=== PATIENT | female | born 1945 | race Caucasian/White ===

== ENCOUNTER 2021-03-17 14:08 | Emergency (ER) | payer MEDICARE, BC ==
[2021-03-17 14:28] VITALS: BP 148/85; PULSE 68
[2021-03-17] MEDS ORDERED: Bacitracin Oint 1 GM U/D Packet TOP ONE (14:30)
[2021-03-17] MEDS ORDERED: Diphtheria,Pertussis(Acell),Tetanus Vaccine 0.5 ML SDV IM ONE (14:32)
--- NOTE | 2021-03-17 14:41 | EDM.PDOC ---
ED HPI GENERAL MEDICAL PROBLEM - General Chief Complaint: Bite:Animal, Insect Stated Complaint: LEFT ARM LACERATIONS Time Seen by Provider: 03/17/21 14:15 Source of Information: Reports: Patient History Limitations: Reports: No Limitations - History of Present Illness INITIAL COMMENTS - FREE TEXT/NARRATIVE: 75 year old female with PMH afib presents to ED after sustaining dog bites to bilateral forearms. This was the patient's dog and it is UTD on vaccines. She will need a tetanus. left arm has 2 very superficial lacerations 4cm, 2 @ 3cm, and 1 deeper laceration 3cm long. Right arm has a superficial laceration 3cm. Onset: Today Onset Time: 13:15 - Related Data Allergies Allergy/AdvReac Type Severity Reaction Status Date / Time iodine Allergy Cannot Verified 03/17/21 14:29 Remember Home Meds: Home Meds Sertraline HCl 75 mg PO DAILY 09/06/13 [History] busPIRone HCl [Buspirone HCl] 10 mg PO DAILY 09/06/13 [History] Doxycycline [Vibra-Tabs] 100 mg PO Q12HR #14 tab 03/17/21 [Rx] Rivaroxaban [Xarelto] 20 mg PO DAILY 03/17/21 [History] Past Medical History HEENT History: Reports: Cataract, Glaucoma, Impaired Vision Cardiovascular History: Reports: Afib, High Cholesterol Neurological History: Reports: CVA Psychiatric History: Reports: Anxiety, Depression Oncologic (Cancer) History: Reports: Breast Dermatologic History: Reports: Psoriasis Social & Family History - Living Situation & Occupation Living situation: Reports: Occupation: Employed ED ROS GENERAL - Review of Systems Review Of Systems: Comprehensive ROS is negative, except as noted in HPI. ED EXAM, ANIMAL BITE - Physical Exam Exam: See Below Exam Limited By: No Limitations General Appearance: Alert, No Apparent Distress Ears: Hearing Grossly Normal Nose: Normal Inspection Throat/Mouth: Normal Voice Head: Atraumatic Neck: Non-Tender, Full Range of Motion Respiratory/Chest: No Respiratory Distress GI/Abdominal: Non-Tender Back Exam: Normal Inspection, Full Range of Motion Extremities: Normal Inspection, Non-Tender, Normal Capillary Refill Neurological: Alert, Oriented, Normal Gait, No Motor/Sensory Deficits Psychiatric: Normal Affect, Normal Mood Skin Exam: Normal Color, Warm/Dry Lymphatic: No Adenopathy ED ANIMAL BITE PROCEDURES - Laceration/Wound Repair Bilateral Lower Arm Lac/Wound Length In cm: 1 (See HPI) Appearance: Superficial Distal NVT: Neuro & Vascular Intact, No Tendon Injury Course - Vital Signs Last Recorded V/S: Last Vital Signs Temp 98 F 03/17/21 14:20 Pulse 68 03/17/21 14:20 Resp 16 03/17/21 14:20 BP 148/85 H 03/17/21 14:20 Pulse Ox 96 03/17/21 14:20 - Orders/Labs/Meds Orders: Active Orders 24 hr Category Date Time Status Vaccines to be Administered [RC] PER UNIT ROUTINE Care 03/17/21 14:32 Active Meds: Medications Discontinued Medications Generic Name Dose Route Start Last Admin Trade Name Freq PRN Reason Stop Dose Admin Diphtheria/Tetanus/Acell Pertussis 0.5 ml 03/17/21 14:32 Diphtheria,Pertussis(Acell),Tetanus Vaccine 0.5 Ml Sdv IM 03/17/21 14:33 .ONCE ONE Departure - Departure Time of Disposition: 14:38 Disposition: Home, Self-Care 01 Clinical Impression: Laceration Dog bite Qualifiers: Encounter type: initial encounter Qualified Code(s): W54.0XXA - Bitten by dog, initial encounter - Discharge Information *PRESCRIPTION DRUG MONITORING PROGRAM REVIEWED*: Not Applicable *COPY OF PRESCRIPTION DRUG MONITORING REPORT IN PATIENT ZAYDA: Not Applicable Prescriptions: Doxycycline [Vibra-Tabs] 100 mg PO Q12HR #14 tab Instructions: Animal Bite, Adult, [id number], Laceration Care, Adult Referrals: PCP,None [Primary Care Provider] - Additional Instructions: Return to Ed for any increased or new concerning symptoms or signs of infection. Take the antibiotics as directed. Follow up with PMD as needed. Sepsis Event Note (ED) - Evaluation Sepsis Screening Result: No Definite Risk - Focused Exam Vital Signs: Vital Signs Temp Pulse Resp BP Pulse Ox 03/17/21 14:20 98 F 68 16 148/85 H 96 - My Orders Last 24 Hours: My Active Orders 03/17/21 14:32 Vaccines to be Administered [RC] PER UNIT ROUTINE - Assessment/Plan Last 24 Hours: My Active Orders 03/17/21 14:32 Vaccines to be Administered [RC] PER UNIT ROUTINE
== END 2021-03-17 14:51 | disposition home or self-care (01) ==
LOC: LB.ED 14:08
DX: S51.852A Open bite of left forearm, initial encounter (principal); S51.851A Open bite of right forearm, initial encounter; I48.91 Unspecified atrial fibrillation; Z23 Encounter for immunization; Z91.041 Radiographic dye allergy status; Z79.01 Long term (current) use of anticoagulants; W54.0XXA Bitten by dog, initial encounter
CPT/HCPCS: 90471; 90715; 99283

== ENCOUNTER 2021-04-07 06:53 | Emergency (ER) | payer MEDICARE, BC ==
[2021-04-07 07:14] VITALS: PULSE 67
[2021-04-07 07:38] VITALS: BP 164/91
--- NOTE | 2021-04-07 14:49 | ER ---
HISTORY OF PRESENT ILLNESS: A 75-year-old lady who comes in with complaints of bleeding from a wound on the left upper arm. She had a stage 0 melanoma removed yesterday in [place]. She had a gauze dressing on it, but it did seem like the bleeding was controlled last evening, but during the night, it was seeping through and she states there was quite a bit of blood on the bed. She came into the emergency room. Nursing staff evaluated it and stated that it was seeping through the incision. A pressure dressing was already applied by nursing staff including Elena over the top of the initial dressing. We monitored the patient for about 20 minutes and there is no sign of any additional bleeding. The patient is able to move her arm and shoulder freely. She does not feel weak. She takes Xarelto for atrial fibrillation and has been on it for a long time. DIAGNOSIS: Post procedure bleeding, on anticoagulation medication. TREATMENT PLAN: I advised the patient to leave this pressure dressing on for 24 to 36 hours as long as it stays clean and dry and then change down to a smaller dressing, but be prepared to continue with the pressure dressing if needed, and within another day or two the bleeding issues should be well controlled. If it continues to cause bleeding problems for her, I suggest that she either come into the clinic or come back to the ER and I would add some Surgicel to the wound. The patient and her are agreeable with the treatment plan and have no further questions. ALISON/BRONWYN /[id number]
== END 2021-04-07 07:25 | disposition home or self-care (01) ==
LOC: LB.ED 06:53
DX: M96.830 Postprocedural hemorrhage of a musculoskeletal structure following a musculoskeletal system procedure (principal); Z79.01 Long term (current) use of anticoagulants
CPT/HCPCS: 99283

== ENCOUNTER 2021-04-07 15:48 | Emergency (ER) | payer MEDICARE, BC ==
[2021-04-07 17:08] VITALS: BP 151/81; PULSE 69
--- NOTE | 2021-04-07 20:57 | ER ---
HISTORY OF PRESENT ILLNESS: A 75-year-old lady here for a recheck. I saw her early this morning. She had a melanoma lesion removed from the left upper arm. She is on Xarelto and came in with bleeding issues. The dressing was reinforced with Shay and Coban. I did not actually see the incision. This morning, nursing staff already had a re-wrapped. She was sent home and came back now several hours later after the dressing has been basically soaked with blood. The patient states that she feels okay. She is not lightheaded or weak. She is having only a dull ache for pain that she is using Tylenol for from the recent surgical procedure. We removed the dressing today and she has a transverse laceration across the lower deltoid muscle area. There is just a small amount of seeping blood at this time coming through the incision. DIAGNOSIS: Postprocedure wound check with ongoing bleeding issues, on anticoagulation. TREATMENT PLAN: We cleansed the area today. After which, I put on 2 Surgicel packs and we covered this with gauze, Shay, and Coban. The patient is to keep this dressing on for up to 2 days as long as it is not soaking through and I do want her to follow up in the clinic Monday morning or sometime Monday for a dressing change. I also want her to stop her Xarelto for 3 days. She takes it in the evening. She has not taken it yet today. ALISON/MODL /[id number]
== END 2021-04-07 16:45 | disposition home or self-care (01) ==
LOC: LB.ED 15:48
DX: M96.830 Postprocedural hemorrhage of a musculoskeletal structure following a musculoskeletal system procedure (principal); Z79.01 Long term (current) use of anticoagulants
CPT/HCPCS: 99283

== ENCOUNTER 2023-08-12 22:25 | Emergency (ER) | payer MEDICARE, BC ==
[2023-08-12 22:57] VITALS: PULSE 76
[2023-08-12] MEDS ORDERED: Lidocaine 1% with EPINEPHrine 1:100,000 20 ML MDV INJECT ONE (23:33)
[2023-08-12 23:38] VITALS: BP 173/94
== END 2023-08-12 23:13 | disposition home or self-care (01) ==
LOC: LB.ED 22:25
DX: S61.211A Laceration without foreign body of left index finger without damage to nail, initial encounter (principal); E78.00 Pure hypercholesterolemia, unspecified; I48.91 Unspecified atrial fibrillation; Z91.041 Radiographic dye allergy status; Z79.899 Other long term (current) drug therapy; Z79.01 Long term (current) use of anticoagulants; W26.8XXA Contact with other sharp object(s), not elsewhere classified, initial encounter
CPT/HCPCS: 12001; 99282

== ENCOUNTER 2025-03-14 15:44 | Inpatient (IN) | payer MEDICARE, BC ==
[2025-03-14 17:08] LABS: ANION GAP 13.8 mmol/L (5.0-15.0); BUN/CREATININE RATIO 17.5 (6-25); CALCIUM 9.4 mg/dL (8.5-10.1); CARBON DIOXIDE,CO2 27.1 mmol/L (21.0-32.0); CREATININE 0.97 mg/dL (0.55-1.02); EST CRCL DRUG DOSING (CG) 45.47 mL/min; POTASSIUM,K 3.9 mmol/L (3.5-5.1)
[2025-03-14 17:09] LABS: HEMATOCRIT 27.2 % (37.0-47.0); HEMOGLOBIN 8.2 g/dL (11.5-16.5); MEAN CORPUSCULAR HGB CONC 30.1 g/dL (31.0-35.0); MEAN PLATELET VOLUME 10.1 fL (6.0-10.0); RED BLOOD CELL COUNT 3.72 M/uL (3.80-5.80); RED CELL DISTRIBUTION WIDTH 20.2 % (11.0-16.0); WHITE BLOOD CELL COUNT,WBC 6.3 K/uL (4.0-11.0)
[2025-03-14 17:21] LABS: TROPONIN I HIGH SENSITIVITY 20.3 pg/ml (<=60.4)
[2025-03-14] MEDS ORDERED: Albuterol/Ipratropium 3.0-0.5 MG/3 ML Neb Soln NEB SCH (17:45)
[2025-03-14] MEDS: Albuterol/Ipratropium 3.0-0.5 MG/3 ML Neb Soln NEB ONE (17:48)
[2025-03-14] MEDS: Furosemide 40 MG/4 ML VIAL IVPUSH ONE (17:56)
[2025-03-14] MEDS: Sodium Chloride 0.9% 10 ML Syringe FLUSH PRN (17:58)
[2025-03-14] MEDS ORDERED: Pantoprazole 40 MG Vial IVPUSH SCH (19:15)
[2025-03-14] MEDS: Pantoprazole 40 MG Vial IVPUSH SCH (22:18)
[2025-03-14] MEDS: Rivaroxaban 10 MG Tab PO SCH (22:19)
[2025-03-15 09:05] LABS: HEMOGLOBIN 9.4 g/dL (11.5-16.5); MEAN CORPUSCULAR HEMOGLOBIN 22.4 pg (27.0-32.0); MEAN CORPUSCULAR HGB CONC 30.3 g/dL (31.0-35.0); MEAN PLATELET VOLUME 9.2 fL (6.0-10.0); RED BLOOD CELL COUNT 4.19 M/uL (3.80-5.80); RED CELL DISTRIBUTION WIDTH 20.6 % (11.0-16.0); WHITE BLOOD CELL COUNT,WBC 6.1 K/uL (4.0-11.0)
[2025-03-15 09:26] LABS: ANION GAP 13.7 mmol/L (5.0-15.0); CALCIUM 9.3 mg/dL (8.5-10.1); CARBON DIOXIDE,CO2 28.1 mmol/L (21.0-32.0); CREATININE 0.93 mg/dL (0.55-1.02); EST CRCL DRUG DOSING (CG) 47.42 mL/min; POTASSIUM,K 3.8 mmol/L (3.5-5.1)
[2025-03-15] MEDS: busPIRone 10 MG Tab PO SCH (09:27)
[2025-03-15] MEDS: Sertraline 100 MG Tab PO SCH (09:27)
[2025-03-15] MEDS: Latanoprost 0.005% Ophth Soln 2.5 ML Bottle EYEBOTH SCH (09:27)
[2025-03-15] MEDS: buPROPion 300 MG Tab.ER PO SCH (09:27)
[2025-03-15] MEDS: Ferrous Sulfate 325 MG Tab PO SCH (11:55)
[2025-03-15] MEDS: Furosemide 20 MG/2 ML VIAL IVPUSH ONE (11:58)
[2025-03-15] MEDS: Multivitamin Tab PO SCH (14:19)
[2025-03-15 18:37] VITALS: BP 159/72; PULSE 75
[2025-03-15] MEDS ORDERED: Simvastatin 40 MG Tab PO SCH (20:00)
[2025-03-18 17:29] LABS: IRON BINDING CAPACITY TOTAL 396 ug/dL (240-450); IRON,SERUM OR PLASMA 11 ug/dL (28-170); TRANSFERRIN SATURATION 3 %sat (20-50)
[2025-03-18 18:09] LABS: FOLATE,SERUM >22.3 ng/mL (>=5.9)
== END 2025-03-15 19:15 | disposition home or self-care (01) | DRG 125 ==
LOC: LB.ED 15:44 → OBSVTOIN 19:00 → LB.MS 19:00
PROVIDERS: ADMIT Surgery; ATTEND Surgery
PROC: 30233N1 Transfusion of Nonautologous Red Blood Cells into Peripheral Vein, Percutaneous Approach (ICD-10-PCS; principal; 2025-03-14)
DX: R06.02 Shortness of breath (principal); H40.9 Unspecified glaucoma; H54.7 Unspecified visual loss; I48.91 Unspecified atrial fibrillation; R06.09 Other forms of dyspnea; R06.00 Dyspnea, unspecified; M19.90 Unspecified osteoarthritis, unspecified site; D64.9 Anemia, unspecified; R79.89 Other specified abnormal findings of blood chemistry; E78.00 Pure hypercholesterolemia, unspecified; F41.9 Anxiety disorder, unspecified; F32.A Depression, unspecified; Z79.01 Long term (current) use of anticoagulants; Z85.3 Personal history of malignant neoplasm of breast; Z96.649 Presence of unspecified artificial hip joint; Z98.890 Other specified postprocedural states; Z98.49 Cataract extraction status, unspecified eye; Z88.8 Allergy status to other drugs, medicaments and biological substances; Z86.73 Personal history of transient ischemic attack (TIA), and cerebral infarction without residual deficits; Z91.041 Radiographic dye allergy status; Z79.899 Other long term (current) drug therapy; Z90.710 Acquired absence of both cervix and uterus; Z87.891 Personal history of nicotine dependence
CPT/HCPCS: 36415; 36430; 71045; 80048; 82607; 82746; 83540; 83550; 83735; 83880; 84484; 85027; 85379; 86850; 86900; 86901; 86920; 86922; 93005; 93010; 94640; 96374; 99222; 99238; 99285-25; A9270-GY; J1938; J2470; P9016

== ENCOUNTER 2025-05-31 10:28 | Emergency (ER) | payer MEDICARE, BC ==
[2025-05-31 11:31] LABS: BASOPHILS ABSOLUTE AUTO 0.04 K/uL (0.02-0.10); BASOPHILS PERCENT AUTO 0.5 % (0.0-0.5); EOSINOPHILS ABSOLUTE AUTO 0.34 K/uL (0.04-0.40); EOSINOPHILS PERCENT AUTO 4.0 % (1.0-5.0); LYMPHOCYTES ABSOLUTE AUTO 1.69 K/uL (1.50-4.00); LYMPHOCYTES PERCENT AUTO 20.0 % (20.0-40.0); MEAN PLATELET VOLUME 10.4 fL (6.0-10.0); MONOCYTES ABSOLUTE AUTO 1.09 K/uL (0.20-0.80); MONOCYTES PERCENT AUTO 12.9 % (3.0-10.0); NEUTROPHILS ABSOLUTE AUTO 5.27 K/uL (2.00-7.50); NEUTROPHILS PERCENT AUTO 62.6 % (45.0-70.0); PLATELET COUNT,PLT 228 K/uL (150-500); RED BLOOD CELL COUNT 4.58 M/uL (3.80-5.80); RED CELL DISTRIBUTION WIDTH 21.3 % (11.0-16.0); WHITE BLOOD CELL COUNT,WBC 8.4 K/uL (4.0-11.0)
[2025-05-31 12:13] LABS: A/G RATIO 0.8 (0.8-2.0); ALANINE AMINOTRANSFERASE,ALT 15.0 U/L (12-78); ASPARTATE AMNIOTRANSFERASE,AST 15.0 U/L (15-37); BILIRUBIN TOTAL 0.5 mg/dL (0.0-1.0); BLOOD UREA NITROGEN,BUN 14.0 mg/dL (8-26); CARBON DIOXIDE,CO2 29.2 mmol/L (21.0-32.0); CHLORIDE,CL 107.0 mmol/L (98-107); CREATININE 0.8 mg/dL (0.55-1.02); EST CRCL DRUG DOSING (CG) 57.27 mL/min; ESTIMATED GFR 76.0 mL/min (>60); GLUCOSE RANDOM 99.0 mg/dL (74-100); POTASSIUM,K 4.4 mmol/L (3.5-5.1); PRO B-TYPE NATRIUR PEPT,BNPPRO 2633.0 pg/mL (0-450); PROTEIN TOTAL,TP 6.9 g/dL (6.4-8.2); SODIUM,NA 141.0 mmol/L (136-145)
[2025-05-31] MEDS: Furosemide 40 MG/4 ML VIAL IVPUSH ONE (12:55)
[2025-05-31 19:57] VITALS: BP 175/108; PULSE 85
== END 2025-05-31 13:15 | disposition home or self-care (01) ==
LOC: LB.ED 10:28
DX: J81.1 Chronic pulmonary edema (principal); I50.9 Heart failure, unspecified; E78.00 Pure hypercholesterolemia, unspecified; Z91.041 Radiographic dye allergy status; Z79.899 Other long term (current) drug therapy; Z90.710 Acquired absence of both cervix and uterus
CPT/HCPCS: 36415; 71045; 80053; 83880; 84484; 85025; 93005; 99285; A9270

== ENCOUNTER 2025-07-23 17:48 | Observation (INO) | payer BC, MEDICARE ==
[2025-07-23] MEDS ORDERED: Sodium Chloride 0.9% 10 ML Syringe FLUSH PRN (18:10)
[2025-07-23 18:26] LABS: BASOPHILS ABSOLUTE AUTO 0.02 K/uL (0.02-0.10); BASOPHILS PERCENT AUTO 0.3 % (0.0-0.5); EOSINOPHILS ABSOLUTE AUTO 0.19 K/uL (0.04-0.40); EOSINOPHILS PERCENT AUTO 2.9 % (1.0-5.0); LYMPHOCYTES ABSOLUTE AUTO 2.02 K/uL (1.50-4.00); LYMPHOCYTES PERCENT AUTO 31.2 % (20.0-40.0); MEAN PLATELET VOLUME 10.2 fL (6.0-10.0); MONOCYTES ABSOLUTE AUTO 0.71 K/uL (0.20-0.80); MONOCYTES PERCENT AUTO 11.0 % (3.0-10.0); NEUTROPHILS ABSOLUTE AUTO 3.53 K/uL (2.00-7.50); NEUTROPHILS PERCENT AUTO 54.6 % (45.0-70.0); PLATELET COUNT,PLT 228 K/uL (150-500); RED BLOOD CELL COUNT 4.80 M/uL (3.80-5.80); RED CELL DISTRIBUTION WIDTH 14.7 % (11.0-16.0); WHITE BLOOD CELL COUNT,WBC 6.5 K/uL (4.0-11.0)
[2025-07-23 18:36] LABS: INR 1.0 (1.0-3.5); PTT,PARTIAL THROMBOPLSTIN TIME 24.8 SECONDS (24.4-33.2)
[2025-07-23 18:37] LABS: A/G RATIO 1.0 (0.8-2.0); ALANINE AMINOTRANSFERASE,ALT 25.0 U/L (12-78); ASPARTATE AMNIOTRANSFERASE,AST 19.0 U/L (15-37); BILIRUBIN TOTAL 0.4 mg/dL (0.0-1.0); BLOOD UREA NITROGEN,BUN 24.0 mg/dL (8-26); CARBON DIOXIDE,CO2 27.3 mmol/L (21.0-32.0); CHLORIDE,CL 106.0 mmol/L (98-107); CREATININE 1.2 mg/dL (0.55-1.02); EST CRCL DRUG DOSING (CG) 38.18 mL/min; ESTIMATED GFR 47.0 mL/min (>60); GLUCOSE RANDOM 83.0 mg/dL (74-100); POTASSIUM,K 4.2 mmol/L (3.5-5.1); PROTEIN TOTAL,TP 7.0 g/dL (6.4-8.2); SODIUM,NA 138.0 mmol/L (136-145)
[2025-07-23 18:45] LABS: APPEARANCE,URINE CLEAR (CLEAR); GLUCOSE,URINE 500 mg/dL (NEGATIVE); OCCULT BLOOD,URINE NEGATIVE (NEGATIVE)
[2025-07-23 18:46] LABS: PRO B-TYPE NATRIUR PEPT,BNPPRO 2042.0 pg/mL (0-450); TROPONIN I HIGH SENSITIVITY 16.5 pg/ml (<=60.4)
[2025-07-23] MEDS ORDERED: Non-Formulary Medication 1 Each (Furosemide [Furosemide] 40 MG Tablet) PO PRN (19:39)
[2025-07-23] MEDS: BUSPIRONE HCL 10 MG PO SCH (21:16)
[2025-07-23] MEDS: Non-Formulary Medication 1 Each (Simvastatin [Simvastatin] 40 MG Tablet) PO SCH (21:17)
[2025-07-24] MEDS ORDERED: SERTRALINE HCL 100 MG PO SCH (08:00)
[2025-07-24] MEDS ORDERED: Non-Formulary Medication 1 Each (Bupropion Hcl [Bupropion Xl] 300 MG Tab.Er.24h) PO SCH (08:00)
[2025-07-24 09:11] LABS: BASOPHILS ABSOLUTE AUTO 0.03 K/uL (0.02-0.10); BASOPHILS PERCENT AUTO 0.5 % (0.0-0.5); EOSINOPHILS ABSOLUTE AUTO 0.16 K/uL (0.04-0.40); EOSINOPHILS PERCENT AUTO 2.8 % (1.0-5.0); LYMPHOCYTES ABSOLUTE AUTO 2.00 K/uL (1.50-4.00); LYMPHOCYTES PERCENT AUTO 35.5 % (20.0-40.0); MEAN PLATELET VOLUME 9.7 fL (6.0-10.0); MONOCYTES ABSOLUTE AUTO 0.51 K/uL (0.20-0.80); MONOCYTES PERCENT AUTO 9.1 % (3.0-10.0); NEUTROPHILS ABSOLUTE AUTO 2.93 K/uL (2.00-7.50); NEUTROPHILS PERCENT AUTO 52.1 % (45.0-70.0); PLATELET COUNT,PLT 212 K/uL (150-500); RED BLOOD CELL COUNT 4.62 M/uL (3.80-5.80); RED CELL DISTRIBUTION WIDTH 14.8 % (11.0-16.0); WHITE BLOOD CELL COUNT,WBC 5.6 K/uL (4.0-11.0)
[2025-07-24] MEDS: FOLIC ACID T PO SCH (09:34)
[2025-07-24] MEDS: Non-Formulary Medication 1 Each (Ascorbic Acid [Vitamin C] 250 MG Tablet) PO SCH (09:34)
[2025-07-24] MEDS: [UNRECOGNIZED DRUG - OTHER] PO SCH (09:34)
[2025-07-24] MEDS: Non-Formulary Medication 1 Each (Cholecalciferol (Vitamin D3) [Vitamin D3] 5,000 UNIT Cap) PO SCH (09:34)
[2025-07-24] MEDS: Non-Formulary Medication 1 Each (Empagliflozin [Jardiance] 10 MG Tablet) PO SCH (09:34)
[2025-07-24] MEDS: FERROUS SULFATE PO SCH (09:34)
[2025-07-24] MEDS: Non-Formulary Medication 1 Each (Latanoprost [Latanoprost] 2.5 ML Drops) EYEBOTH SCH (09:35)
[2025-07-24] MEDS: buPROPion 300 MG Tab.ER PO SCH (09:38)
[2025-07-24 09:48] LABS: A/G RATIO 0.9 (0.8-2.0); ALANINE AMINOTRANSFERASE,ALT 20.0 U/L (12-78); ASPARTATE AMNIOTRANSFERASE,AST 16.0 U/L (15-37); BILIRUBIN TOTAL 0.6 mg/dL (0.0-1.0); BLOOD UREA NITROGEN,BUN 19.0 mg/dL (8-26); CARBON DIOXIDE,CO2 27.9 mmol/L (21.0-32.0); CHLORIDE,CL 108.0 mmol/L (98-107); CREATININE 1.0 mg/dL (0.55-1.02); EST CRCL DRUG DOSING (CG) 42.39 mL/min; ESTIMATED GFR 58.0 mL/min (>60); GLUCOSE RANDOM 121.0 mg/dL (74-100); POTASSIUM,K 4.0 mmol/L (3.5-5.1); PRO B-TYPE NATRIUR PEPT,BNPPRO 2782.0 pg/mL (0-450); PROTEIN TOTAL,TP 6.6 g/dL (6.4-8.2); SODIUM,NA 140.0 mmol/L (136-145)
[2025-07-24 13:38] VITALS: BP 130/57; PULSE 63
== END 2025-07-24 13:40 | disposition home or self-care (01) ==
LOC: LB.ED 17:48 → UNDOADMOB 19:38 → LB.MS 19:38
PROVIDERS: ADMIT Physician Assistant; ATTEND Physician Assistant
DX: E86.0 Dehydration (principal); R53.1 Weakness; E78.00 Pure hypercholesterolemia, unspecified; I48.91 Unspecified atrial fibrillation; R06.02 Shortness of breath; Z91.09 Other allergy status, other than to drugs and biological substances; Z79.01 Long term (current) use of anticoagulants; Z79.899 Other long term (current) drug therapy
CPT/HCPCS: 36415; 70450; 71045; 80053; 81003; 82947; 83735; 83880; 84484; 85025; 85610; 85730; 93005; 96360; 96361; 97161-GP; 99222; 99238; 99285; A0425; A0428; A9270-GY; G0378; J7030

== ENCOUNTER 2025-09-10 13:41 | Inpatient (IN) | payer MEDICARE ==
[2025-09-10] MEDS ORDERED: Acetaminophen/oxyCODONE 325-5 MG Tab PO PRN (15:05)
[2025-09-10] MEDS: Tuberculin, PPD 5 Units/0.1 ML 1 ML MDV IDERM ONE (19:53)
[2025-09-10] MEDS ORDERED: Tuberculin, PPD 5 Units/0.1 ML 1 ML MDV IDERM ONE (20:00)
[2025-09-11] MEDS: Ergocalciferol (Vitamin D2) 1.25 MG Cap PO SCH (07:33)
[2025-09-11] MEDS: buPROPion 300 MG Tab.ER PO SCH (07:34)
[2025-09-11] MEDS ORDERED: Fish Oil/Omega-3 Fatty Acids 1 Gm Cap PO SCH (08:00)
[2025-09-11] MEDS ORDERED: Non-Formulary Medication 1 Each (Cholecalciferol (Vitamin D3) [Vitamin D3] 5,000 UNIT) PO SCH (08:00)
[2025-09-11] MEDS ORDERED: Cholecalciferol (Vitamin D3) 2,000 Unit Cap PO SCH (08:00)
[2025-09-11] MEDS ORDERED: Non-Formulary Medication 1 Each (Cholecalciferol (Vitamin D3) [Vitamin D3] 125 MCG Capsule PO SCH (08:00)
[2025-09-11] MEDS ORDERED: Non-Formulary Medication 1 Each (Ascorbic Acid [Vitamin C] 250 MG Tablet) PO SCH (08:00)
[2025-09-11] MEDS: FLU (Fluad Triv) 25-26 (65UP)/MF59C/PF 45 MCG/0.5 ML Syringe IM ONE (19:43)
[2025-09-17 09:11] VITALS: BP 131/71; PULSE 77
== END 2025-09-17 10:31 | disposition home or self-care (01) | DRG 948 ==
LOC: LB.MS 14:00 → UNDOADMIN 14:00
PROVIDERS: ADMIT Surgery; ATTEND Surgery
DX: R53.81 Other malaise (principal); H54.7 Unspecified visual loss; I48.91 Unspecified atrial fibrillation; E78.00 Pure hypercholesterolemia, unspecified; M19.90 Unspecified osteoarthritis, unspecified site; E86.0 Dehydration; F41.9 Anxiety disorder, unspecified; S70.01XA Contusion of right hip, initial encounter; S29.8XXA Other specified injuries of thorax, initial encounter; R29.6 Repeated falls; R26.2 Difficulty in walking, not elsewhere classified; D64.9 Anemia, unspecified; F32.A Depression, unspecified; Z96.649 Presence of unspecified artificial hip joint; Z79.01 Long term (current) use of anticoagulants; Z85.3 Personal history of malignant neoplasm of breast; Z98.890 Other specified postprocedural states; Z88.8 Allergy status to other drugs, medicaments and biological substances; Z79.899 Other long term (current) drug therapy; Z98.49 Cataract extraction status, unspecified eye; Z90.710 Acquired absence of both cervix and uterus; Z87.891 Personal history of nicotine dependence; Z23 Encounter for immunization
CPT/HCPCS: 76536; 86580; 90653; 97110-GP; 97116-GP; 97530-GO; 97530-GP; 97535-GO; 99305; 99315; A9270-GY; G0008; J1650